=== PATIENT | female | born 1985 ===

== ENCOUNTER 2019-10-31 05:34 | Inpatient (IN) | payer MEDICAID, OTHER ==
[2019-10-31] MEDS: Lactated Ringers 1,000 ML IV SCH ×2 (06:05→06:53)
[2019-10-31] MEDS ORDERED: Citric Acid/Sodium Citrate Solution 30 ML Cup PO ONE (06:30)
[2019-10-31] MEDS ORDERED: Sodium Chloride 0.9% 10 ML Syringe FLUSH PRN (06:30)
[2019-10-31] MEDS ORDERED: Sodium Chloride 0.9% 10 ML SDV IV PRN (06:30)
[2019-10-31] MEDS ORDERED: Sodium Chloride 0.9% 2.5 ML Syringe FLUSH PRN (06:30)
[2019-10-31] MEDS ORDERED: Oxytocin/0.9 % Sodium Chloride 30 UNIT/500 ML BAG IV SCH (06:30)
[2019-10-31] MEDS ORDERED: ceFAZolin 2 GM in Premix Bag 1 BAG IV ONE (06:30)
--- NOTE | 2019-10-31 07:18 | PCM.PREANE ---
Preanesthetic Assessment - Anesthesia/Transfusion/Family Hx Anesthesia History: Prior Anesthesia Without Reaction Family History of Anesthesia Reaction: No Transfusion History: No Prior Transfusion(s) - Review of Systems General: No Symptoms Pulmonary: No Symptoms Cardiovascular: No Symptoms Gastrointestinal: No Symptoms Neurological: No Symptoms Other: Reports: None - Physical Assessment NPO Status Date: 10/01/19 Height: 5 ft 8 in Weight: 94.801 kg ASA Class: 1 Mental Status: Alert & Oriented x3 Airway Class: Mallampati = 2 Dentition: Reports: Normal Dentition ROM/Head Extension: Full Lungs: Clear to Auscultation, Normal Respiratory Effort Cardiovascular: Regular Rate, Regular Rhythm - Lab Values: Laboratory Last Values WBC 7.88 K/uL (4.0-11.0) 10/31/19 06:00 RBC 3.85 M/uL (4.30-5.90) L 10/31/19 06:00 Hgb 10.9 g/dL (12.0-16.0) L 10/31/19 06:00 Hct 33.4 % (36.0-46.0) L 10/31/19 06:00 MCV 86.8 fL (80.0-98.0) 10/31/19 06:00 MCH 28.3 pg (27.0-32.0) 10/31/19 06:00 MCHC 32.6 g/dL (31.0-37.0) 10/31/19 06:00 RDW Std Deviation 44.0 fl (28.0-62.0) 10/31/19 06:00 RDW Coeff of Best 14 % (11.0-15.0) 10/31/19 06:00 Plt Count 185 K/uL (150-400) 10/31/19 06:00 MPV 10.00 fL (7.40-12.00) 10/31/19 06:00 Nucleated RBC % 0.6 /100WBC 10/31/19 06:00 Nucleated RBCs # 0 K/uL 10/31/19 06:00 - Allergies Allergies/Adverse Reactions: Allergies Allergy/AdvReac Type Severity Reaction Status Date / Time No Known Allergies Allergy Verified 10/22/19 14:45 - Blood Blood Available: Yes - Anesthesia Plan Pre-Op Medication Ordered: None - Acknowledgements Anesthesia Type Planned: Spinal Pt an Appropriate Candidate for the Planned Anesthesia: Yes Alternatives and Risks of Anesthesia Discussed w Pt/Guardian: Yes Pt/Guardian Understands and Agrees with Anesthesia Plan: Yes Additional Comments: repeat elective c section PLAN: spinal with duramorph 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: Neurological History: Reports: Migraines Other Neuro History: hx of migraines- not recently Endocrine/Metabolic History: Reports: Obesity/BMI 30+ - Past Surgical History Head Surgeries/Procedures: Reports: None Female Surgical History: Reports: Section Other Female Surgeries/Procedures: previous x3 - SUBSTANCE USE Smoking Status *Q: Never Smoker Recreational Drug Use History: No - HOME MEDS Home Medications: Home Meds Acetaminophen [Tylenol Bulk Bottle] 1 tab PO ASDIRECTED PRN 10/22/19 [History] Pnv No.95/Ferrous Fum/Folic AC [ Vitamin Tablet] 1 tab PO DAILY [History] - CURRENT (IN HOUSE) MEDS Current Meds: Current Medications Lactated Ringer's (Ringers, Lactated) 1,000 mls @ 500 mls/hr IV BOLUS [place] Last Admin: 10/31/19 06:53 Dose: 999 mls/hr Oxytocin/Sodium Chloride (Oxytocin 30 Unit/500 Ml-Ns) 30 unit in 500 mls @ 250 mls/hr IV TITRATE [place] Sodium Chloride (Saline Flush) 10 ml FLUSH ASDIRECTED PRN PRN Reason: Keep Vein Open Sodium Chloride (Saline Flush) 2.5 ml FLUSH ASDIRECTED PRN PRN Reason: Keep Vein Open Sodium Chloride (Normal Saline) 10 ml IV ASDIRECTED PRN PRN Reason: IV Use Discontinued Medications Citric Acid/Sodium Citrate (Bicitra Solution) 30 ml PO ONETIME ONE Stop: 10/31/19 06:31 Cefazolin Sodium/Dextrose 2 gm (/ Premix) 50 mls @ 100 mls/hr IV ONETIME ONE Stop: 10/31/19 06:59
[2019-10-31] MEDS ORDERED: Ondansetron 4 MG/2 ML SDV ONE (07:20)
[2019-10-31] MEDS ORDERED: Oxytocin 10 Units/1 ML SDV ONE (07:20)
[2019-10-31] MEDS ORDERED: Morphine PF 10 MG/10 ML SDV ONE (07:37)
[2019-10-31] MEDS ORDERED: ceFAZolin/Dextrose,Iso-Osmotic 2 GM/50 ML Duplex Bag IV ONE (07:37)
[2019-10-31] MEDS ORDERED: Acetaminophen/oxyCODONE 325-5 MG Tab PO PRN ×2 (08:02→09:32)
[2019-10-31] MEDS ORDERED: Nalbuphine 10 MG/1 ML Vial IVPUSH PRN (08:02)
[2019-10-31] MEDS ORDERED: fentaNYL 100 MCG/2 ML SDV IVPUSH PRN (08:02)
[2019-10-31] MEDS ORDERED: Lanolin 100% Cream 7 GM Tube TOP PRN (09:32)
[2019-10-31] MEDS ORDERED: diphenhydrAMINE 50 MG/ML SDV IVPUSH PRN (09:32)
[2019-10-31] MEDS ORDERED: Oxytocin 10 Units/1 ML SDV IM PRN (09:32)
[2019-10-31] MEDS ORDERED: Bisacodyl 10 MG Supp RECTAL PRN (09:32)
[2019-10-31] MEDS ORDERED: Misoprostol 200 MCG Tab RECTAL PRN (09:32)
[2019-10-31] MEDS ORDERED: Tranexamic Acid 1,000 MG in Sodium Chloride 0.9% 100 ML IV PRN (09:32)
[2019-10-31] MEDS ORDERED: Methylergonovine 0.2 MG/1 ML Amp IM PRN (09:32)
[2019-10-31] MEDS ORDERED: Ondansetron 4 MG/2 ML SDV IVPUSH PRN (09:32)
--- NOTE | 2019-10-31 09:37 | PCM.OPNOTE ---
- General Post-Op/Procedure Note Date of Surgery/Procedure: 10/31/19 Operative Procedure(s): Quarternary lower segment transverse Findings: Live female delivered at 823am , 8/9 weight 3780g Pre Op Diagnosis: Previous X 3 Post-Op Diagnosis: Previous X 3 Anesthesia Technique: Spinal Primary Surgeon: Roque Bonilla Anesthesia Provider: Chaol Bermudez Split Fluid Replacement, Intraop: 2,000 Output, Urine Amount: 250 EBL in mLs: 700 Complications: None Condition: Good
[2019-10-31] MEDS ORDERED: Oxytocin/Lactated Ringers 30 UNIT/500 ML BAG IV SCH (09:45)
[2019-10-31] MEDS ORDERED: Lactated Ringers 1,000 ML IV SCH (09:45)
[2019-10-31] MEDS: Ketorolac 30 MG/ML SDV IVPUSH SCH ×3 (09:46→21:48)
--- NOTE | 2019-10-31 10:07 | PCM.POSTAN ---
POST ANESTHESIA ASSESSMENT - MENTAL STATUS Mental Status: Alert - VITAL SIGNS Vital Signs: Last Vital Signs Temp 97.1 C H 10/31/19 09:25 Pulse 77 10/31/19 10:00 Resp 13 10/31/19 10:00 BP 104/44 L 10/31/19 10:00 Pulse Ox 98 10/31/19 10:00 - RESPIRATORY Respiratory Status: Respiratory Rate WNL - CARDIOVASCULAR CV Status: Pulse Rate WNL - GASTROINTESTINAL GI Status: No Symptoms - POST OP HYDRATION Hydration Status: Adequate & Stable
[2019-10-31] MEDS: Docusate Sodium 100 MG Cap PO SCH (21:48)
[2019-11-01] MEDS: Ketorolac 30 MG/ML SDV IVPUSH SCH ×2 (03:54→10:16)
--- NOTE | 2019-11-01 08:38 | PCM48HPAN ---
Post Anesthesia Note - EVALUATION WITHIN 48HRS OF ANESTHETIC Vital Signs in Normal Range: Yes Patient Participated in Evaluation: Yes Respiratory Function Stable: Yes Airway Patent: Yes Cardiovascular Function Stable: Yes Hydration Status Stable: Yes Pain Control Satisfactory: Yes Nausea and Vomiting Control Satisfactory: Yes Mental Status Recovered: Yes Vital Signs: Last Vital Signs Temp 36.3 C 11/01/19 08:00 Pulse 68 11/01/19 08:00 Resp 16 11/01/19 08:00 BP 110/60 11/01/19 08:00 Pulse Ox 99 11/01/19 08:00
--- NOTE | 2019-11-01 10:02 | PCM.PNPP ---
- General Info Date of Service: 11/01/19 Admission Dx/Problem (Free Text): Patient doing well. Minimal lochia. Tolerating oral intake without nausea. Pain controlled with oral pain medications. going better this morning. Functional Status: Reports: Pain Controlled, Tolerating Diet, Ambulating, Urinating - Review of Systems General: Reports: No Symptoms HEENT: Reports: No Symptoms Pulmonary: Reports: No Symptoms Cardiovascular: Reports: No Symptoms Gastrointestinal: Reports: No Symptoms Genitourinary: Reports: No Symptoms Musculoskeletal: Reports: No Symptoms Skin: Reports: No Symptoms Neurological: Reports: No Symptoms Psychiatric: Reports: No Symptoms - Patient Data Vital Signs - Most Recent: Last Vital Signs Temp 36.3 C 11/01/19 08:00 Pulse 68 11/01/19 08:00 Resp 16 11/01/19 08:00 BP 110/60 11/01/19 08:00 Pulse Ox 99 11/01/19 08:00 Weight - Most Recent: 94.801 kg I&O - Last 24 Hours: Intake & Output 10/31/19 11/01/19 11/01/19 22:59 06:59 14:59 Intake Total 1050 Output Total 250 Balance 800 Lab Results - Last 24 Hours: Laboratory Results - last 24 hr 11/01/19 Range/Units 05:35 Hgb 10.3 L (12.0-16.0) g/dL Hct 32.0 L (36.0-46.0) % Med Orders - Current: Current Medications Bisacodyl (Dulcolax) 10 mg RECTAL ONETIME PRN PRN Reason: Constipation Diphenhydramine HCl (Benadryl) 25 mg IVPUSH Q6H PRN PRN Reason: Itching or Nausea Docusate Sodium (Colace) 100 mg PO BID COUNT INCLUDES THE [facility] Last Admin: 10/31/19 21:48 Dose: 100 mg Emollient Ointment (Lansinoh Hpa) 0 gm TOP ASDIRECTED PRN PRN Reason: Sore Nipples Last Admin: 10/31/19 16:13 Dose: 7 gm Lactated Ringer's (Ringers, Lactated) 1,000 mls @ 500 mls/hr IV BOLUS COUNT INCLUDES THE [facility] Last Admin: 10/31/19 06:53 Dose: 999 mls/hr Oxytocin/Sodium Chloride (Oxytocin 30 Unit/500 Ml-Ns) 30 unit in 500 mls @ 250 mls/hr IV TITRATE [place] Tranexamic Acid 1,000 mg/ (Sodium Chloride) 110 mls @ 660 mls/hr IV ONETIME PRN PRN Reason: Bleeding Lactated Ringer's (Ringers, Lactated) 1,000 mls @ 125 mls/hr IV ASDIRECTED [place] Last Admin: 10/31/19 10:47 Dose: 125 mls/hr Oxytocin/Lactated Ringer's (Pitocin In Lr 30 Units/500 Ml) 30 unit in 500 mls @ 125 mls/hr IV TITRATE [place]; Protocol Ibuprofen (Motrin) 800 mg PO Q8H PRN PRN Reason: mild pain or fever Methylergonovine Maleate (Methergine) 0.2 mg IM ONETIME PRN PRN Reason: Excessive Vaginal Bleeding Misoprostol (Cytotec) 1,000 mcg RECTAL ONETIME PRN PRN Reason: excessive bleeding Ondansetron HCl (Zofran) 4 mg IVPUSH Q4H PRN PRN Reason: Nausea/Vomiting Last Admin: 10/31/19 16:12 Dose: 4 mg Oxycodone/Acetaminophen (Percocet 325-5 Mg) 1 tab PO ONETIME PRN PRN Reason: Pain (moderate 4-6) Oxycodone/Acetaminophen (Percocet 325-5 Mg) 1 tab PO Q4H PRN PRN Reason: Pain (moderate 4-6) Oxycodone/Acetaminophen (Percocet 325-5 Mg) 2 tab PO Q4H PRN PRN Reason: Pain (moderate 4-6) Oxytocin (Pitocin) 10 unit IM ASDIRECTED PRN PRN Reason: Excessive Vaginal Bleeding Sodium Chloride (Saline Flush) 10 ml FLUSH ASDIRECTED PRN PRN Reason: Keep Vein Open Sodium Chloride (Saline Flush) 2.5 ml FLUSH ASDIRECTED PRN PRN Reason: Keep Vein Open Sodium Chloride (Normal Saline) 10 ml IV ASDIRECTED PRN PRN Reason: IV Use Discontinued Medications Cefazolin Sodium/Dextrose (Ancef) Confirm Administered Dose 2 gm IV .STK-MED ONE Stop: 10/31/19 07:38 Citric Acid/Sodium Citrate (Bicitra Solution) 30 ml PO ONETIME ONE Stop: 10/31/19 06:31 Last Admin: 10/31/19 07:38 Dose: 30 ml Fentanyl (Sublimaze) 50 mcg IVPUSH Q5M PRN PRN Reason: Pain (severe 7-10) Stop: 11/01/19 08:03 Cefazolin Sodium/Dextrose 2 gm (/ Premix) 50 mls @ 100 mls/hr IV ONETIME ONE Stop: 10/31/19 06:59 Last Admin: 10/31/19 16:17 Dose: Not Given Ketorolac Tromethamine (Toradol) 30 mg IVPUSH Q6H [place] Stop: 11/01/19 09:46 Last Admin: 11/01/19 03:54 Dose: 30 mg Morphine Sulfate (Duramorph Pf) Confirm Administered Dose 10 mg .ROUTE .STK-MED ONE Stop: 10/31/19 07:38 Nalbuphine HCl (Nubain) 2.5 mg IVPUSH Q3H PRN PRN Reason: Pruritis Stop: 11/01/19 08:03 Ondansetron HCl (Zofran) Confirm Administered Dose 4 mg .ROUTE .STK-MED ONE Stop: 10/31/19 07:21 Oxytocin (Pitocin) Confirm Administered Dose 20 unit .ROUTE .STK-MED ONE Stop: 10/31/19 07:21 - Interaction Infant Disposition, : in Room with Family Infant Interaction: Holding Infant Feeding: Attempted ; Nursed Fair/Poor, Bottle Fed Support Person: Significant Other - Recovery Exam Fundal Tone: Firm Fundal Level: 1 Fingerbreadths Below Umbilicus Fundal Placement: Midline Lochia Amount: Small Lochia Color: Rubra/Red Bladder Status: Voiding Urinary Elimination: Not Voiding - Exam General: Alert, Oriented Neck: Supple Lungs: Clear to Auscultation, Normal Respiratory Effort Cardiovascular: Regular Rate, Regular Rhythm GI/Abdominal Exam: Soft, Non-Tender, No Distention Extremities: Non-Tender Skin: Warm, Dry, Intact Wound/Incisions: Other (dressing with small amount of blood) Neurological: No New Focal Deficit Psy/Mental Status: Alert, Normal Affect, Normal Mood - Problem List & Annotations (1) Status post repeat low transverse section SNOMED Code(s): 727778357, 75611034, 680827401, 964443783, 173817795 Code(s): Z98.891 - HISTORY OF UTERINE SCAR FROM PREVIOUS SURGERY Status: Acute Current Visit: Yes - Problem List Review Problem List Initiated/Reviewed/Updated: Yes - Assessment Assessment:: 34yo P4 s/p section #4, POD#1 - Plan Plan:: Continue routine care. Encourage ambulation.
[2019-11-01] MEDS: Docusate Sodium 100 MG Cap PO SCH ×2 (10:17→20:03)
[2019-11-01] MEDS: Acetaminophen/oxyCODONE 325-5 MG Tab PO PRN (13:03)
[2019-11-01] MEDS: Ibuprofen 800 MG Tab PO PRN (20:03)
[2019-11-02] MEDS: Acetaminophen/oxyCODONE 325-5 MG Tab PO PRN (02:56)
[2019-11-02] MEDS: Ibuprofen 800 MG Tab PO PRN ×2 (06:23→14:12)
--- NOTE | 2019-11-02 10:21 | PCM.PNPP ---
- General Info Date of Service: 11/02/19 Admission Dx/Problem (Free Text): Patient doing well. Minimal lochia. Tolerating oral intake without nausea. Pain controlled with oral pain medications. Functional Status: Reports: Pain Controlled, Tolerating Diet, Ambulating, Urinating - Review of Systems General: Reports: No Symptoms HEENT: Reports: No Symptoms Pulmonary: Reports: No Symptoms Cardiovascular: Reports: No Symptoms Gastrointestinal: Reports: No Symptoms Genitourinary: Reports: No Symptoms Musculoskeletal: Reports: No Symptoms Skin: Reports: No Symptoms Neurological: Reports: No Symptoms Psychiatric: Reports: No Symptoms - Patient Data Vital Signs - Most Recent: Last Vital Signs Temp 36.4 C 11/02/19 08:10 Pulse 84 11/02/19 08:10 Resp 16 11/02/19 08:10 BP 99/66 11/02/19 08:10 Pulse Ox 98 11/02/19 08:10 Weight - Most Recent: 94.801 kg Med Orders - Current: Current Medications Bisacodyl (Dulcolax) 10 mg RECTAL ONETIME PRN PRN Reason: Constipation Diphenhydramine HCl (Benadryl) 25 mg IVPUSH Q6H PRN PRN Reason: Itching or Nausea Docusate Sodium (Colace) 100 mg PO BID [facility] Last Admin: 11/01/19 20:03 Dose: 100 mg Emollient Ointment (Lansinoh Hpa) 0 gm TOP ASDIRECTED PRN PRN Reason: Sore Nipples Last Admin: 10/31/19 16:13 Dose: 7 gm Lactated Ringer's (Ringers, Lactated) 1,000 mls @ 500 mls/hr IV BOLUS [facility] Last Admin: 10/31/19 06:53 Dose: 999 mls/hr Oxytocin/Sodium Chloride (Oxytocin 30 Unit/500 Ml-Ns) 30 unit in 500 mls @ 250 mls/hr IV TITRATE [facility] Tranexamic Acid 1,000 mg/ (Sodium Chloride) 110 mls @ 660 mls/hr IV ONETIME PRN PRN Reason: Bleeding Lactated Ringer's (Ringers, Lactated) 1,000 mls @ 125 mls/hr IV ASDIRECTED [facility] Last Admin: 10/31/19 10:47 Dose: 125 mls/hr Oxytocin/Lactated Ringer's (Pitocin In Lr 30 Units/500 Ml) 30 unit in 500 mls @ 125 mls/hr IV TITRATE [place]; Protocol Ibuprofen (Motrin) 800 mg PO Q8H PRN PRN Reason: mild pain or fever Last Admin: 11/02/19 06:23 Dose: 800 mg Methylergonovine Maleate (Methergine) 0.2 mg IM ONETIME PRN PRN Reason: Excessive Vaginal Bleeding Misoprostol (Cytotec) 1,000 mcg RECTAL ONETIME PRN PRN Reason: excessive bleeding Ondansetron HCl (Zofran) 4 mg IVPUSH Q4H PRN PRN Reason: Nausea/Vomiting Last Admin: 10/31/19 16:12 Dose: 4 mg Oxycodone/Acetaminophen (Percocet 325-5 Mg) 1 tab PO ONETIME PRN PRN Reason: Pain (moderate 4-6) Oxycodone/Acetaminophen (Percocet 325-5 Mg) 1 tab PO Q4H PRN PRN Reason: Pain (moderate 4-6) Last Admin: 11/01/19 20:02 Dose: 1 tab Oxycodone/Acetaminophen (Percocet 325-5 Mg) 2 tab PO Q4H PRN PRN Reason: Pain (moderate 4-6) Last Admin: 11/02/19 02:56 Dose: 2 tab Oxytocin (Pitocin) 10 unit IM ASDIRECTED PRN PRN Reason: Excessive Vaginal Bleeding Sodium Chloride (Saline Flush) 10 ml FLUSH ASDIRECTED PRN PRN Reason: Keep Vein Open Sodium Chloride (Saline Flush) 2.5 ml FLUSH ASDIRECTED PRN PRN Reason: Keep Vein Open Sodium Chloride (Normal Saline) 10 ml IV ASDIRECTED PRN PRN Reason: IV Use Discontinued Medications Cefazolin Sodium/Dextrose (Ancef) Confirm Administered Dose 2 gm IV .STK-MED ONE Stop: 10/31/19 07:38 Citric Acid/Sodium Citrate (Bicitra Solution) 30 ml PO ONETIME ONE Stop: 10/31/19 06:31 Last Admin: 10/31/19 07:38 Dose: 30 ml Fentanyl (Sublimaze) 50 mcg IVPUSH Q5M PRN PRN Reason: Pain (severe 7-10) Stop: 11/01/19 08:03 Cefazolin Sodium/Dextrose 2 gm (/ Premix) 50 mls @ 100 mls/hr IV ONETIME ONE Stop: 10/31/19 06:59 Last Admin: 10/31/19 16:17 Dose: Not Given Ketorolac Tromethamine (Toradol) 30 mg IVPUSH Q6H [facility] Stop: 11/01/19 09:46 Last Admin: 11/01/19 10:16 Dose: 30 mg Morphine Sulfate (Duramorph Pf) Confirm Administered Dose 10 mg .ROUTE .STK-MED ONE Stop: 10/31/19 07:38 Nalbuphine HCl (Nubain) 2.5 mg IVPUSH Q3H PRN PRN Reason: Pruritis Stop: 11/01/19 08:03 Ondansetron HCl (Zofran) Confirm Administered Dose 4 mg .ROUTE .STK-MED ONE Stop: 10/31/19 07:21 Oxytocin (Pitocin) Confirm Administered Dose 20 unit .ROUTE .STK-MED ONE Stop: 10/31/19 07:21 - Infant Interaction Disposition, : in Room with Family Interaction: Holding Infant Feeding: Attempted ; Nursed Fair/Poor, Bottle Fed Support Person: Significant Other - Recovery Exam Fundal Tone: Firm Fundal Level: 1 Fingerbreadths Below Umbilicus Fundal Placement: Midline Lochia Amount: Scant Lochia Color: Rubra/Red Bladder Status: Voiding Urinary Elimination: Voided - Exam General: Alert, Oriented Neck: Supple Lungs: Clear to Auscultation, Normal Respiratory Effort Cardiovascular: Regular Rate, Regular Rhythm GI/Abdominal Exam: Soft, Non-Tender, No Distention Extremities: Non-Tender Skin: Warm, Dry, Intact Wound/Incisions: Other (dressing with small amount of blood) Neurological: No New Focal Deficit Psy/Mental Status: Alert, Normal Affect, Normal Mood - Problem List & Annotations (1) Status post repeat low transverse section SNOMED Code(s): 724235214, 23426096, 618265656, 699808780, 099032509 Code(s): Z98.891 - HISTORY OF UTERINE SCAR FROM PREVIOUS SURGERY Status: Acute Current Visit: Yes - Problem List Review Problem List Initiated/Reviewed/Updated: Yes - My Orders Last 24 Hours: My Active Orders 11/02/19 10:19 Ready for Discharge [RC] PER UNIT ROUTINE - Assessment Assessment:: 34yo P4 s/p section #4, POD#2 - Plan Plan:: Desires discharge home today, reviewed discharge instructions. Follow-up incision check.
--- NOTE | 2019-11-03 08:40 | OR ---
SURGEON: CIPRIANO NIETO DIRECTOR OF OUTPATIENT SERVICES JUVE FLEMING DATE OF PROCEDURE: 10/31/2019 PREOPERATIVE DIAGNOSIS: A 34-year-old G4, P 3-0-0-3, at 39 weeks 0 days for quaternary section. POSTOPERATIVE DIAGNOSIS: A 34-year-old G4, P 3-0-0-3, at 39 weeks 0 days for quaternary section. PROCEDURE: Quaternary section. ANAESTHESIA SPINAL ESTIMATED BLOOD LOSS: 700. IV FLUID: 2000. URINE OUTPUT: 250. NOTES AND FINDING: A live female delivered at 0823. score of 8 and 9. Weight is 3780 g. BRIEF HISTORY: A 34-year-old, G4, P 3-0-0-3, at 39 weeks 0 days, previous x3, who desired a quaternary . She was explained the risks, benefits, and alternatives, and she decided to proceed. DESCRIPTION OF PROCEDURE: The patient was taken to the operating room, where spinal anesthesia was performed without difficulty. She was prepared and draped in the dorsal supine position with a leftward tilt. A Pfannenstiel skin incision was made on the previous incision and carried down to the fascia with the Bovie. The fascia was incised and extended laterally. Then, the rectus muscle was in the midline. With the Attempt to separate the fascia from the rectus muscle, the peritoneum was entered in. Very minimal adhesion was noted. Then, the lower uterine segment was visualized, which was thin, with some bulge around it and the bladder was in close proximity. So the bladder flap was created to mobilize the bladder downward. A lower uterine incision was made. The fetus was in cephalic position, was delivered without difficulty.The Umbilical cord was clamped and cut. The infant was handed over to the awaiting nursery nurse. Then, the placenta was delivered by manual massage of the uterine fundus. The uterus was cleaned with laparotomy sponge. Then, the uterine layer was closed in 2 layers, first layer with 0 Vicryl, second layer with 0 Monocryl. Gabriel was removed. Incision was inspected, noted to be hemostatic. The peritoneum was closed with the muscle in the lower segment to create a barrier between the fascia and the lower uterine segment. The fascia was then closed with 0 Vicryl. The adhesion in the subcutaneous fat lysed and the skin was closed with 3-0 Monocryl on a Marcos needle. The WILMAN dressing was placed over the incision. All instrument and pad counts were correct x2. The patient tolerated the procedure well and was taken to the recovery room in stable condition. MIKE RUSH /[id number] MTDD
== END 2019-11-02 14:28 | disposition home or self-care (01) | DRG 788 ==
LOC: MW.OB 05:34
PROVIDERS: ADMIT Obstetrics & Gynecology; ATTEND Obstetrics & Gynecology
PROC: 10D00Z1 Extraction of Products of Conception, Low, Open Approach (ICD-10-PCS; principal; 2019-10-31)
DX: O34.211 Maternal care for low transverse scar from previous cesarean delivery (principal); Z3A.39 39 weeks gestation of pregnancy; Z37.0 Single live birth; O99.214 Obesity complicating childbirth; E66.9 Obesity, unspecified
CPT/HCPCS: 01961; 36415; 59025; 85014; 85018; 85027; 86592; 86593; 86850; 86900; 86901; A9270-GY; J0690; J1885; J2270; J2405; J2590; J7120